=== PATIENT | male | born 1990 | race African-American/Black ===

== ENCOUNTER 2019-11-01 13:41 | Emergency (ER) | payer SELFPAY ==
[~2019-11-01 13:41] MED LIST: EPINEPHrine 1 MG/10 ML Abboject SYRINGE ONE; Sodium Bicarb 50 MEQ/50 ML Abboject 8.4% SYRINGE ONE
[2019-11-01 14:07] LABS: Mean Corpuscular HGB CONC 32.3 g/dL (32.0-36.0); Mean Corpuscular Hemoglobin 29.2 pg (27.0-31.0); Mean Corpuscular Volume 90.3 fL (78.0-98.0); Mean Platelet Volume 8.7 fL (7.4-10.4); Platelet Count 249 thou/uL (130-400); RBC Distribution Width 13.9 % (11.5-14.5); Red Blood Cell (RBC) Count 5.15 mill/uL (4.70-6.10); White Blood Cell (WBC) Count 13.2 thou/uL (4.8-10.8)
[2019-11-01 14:18] LABS: ALT (SGPT) 12 U/L (8-55); AST (SGOT) 17 U/L (5-34); Alkaline Phosphatase 57 U/L (40-110); Anion Gap 28 mmol/L (10-20); BUN (Urea Nitrogen) 12 mg/dL (8.4-25.7); Bilirubin, Total 0.2 mg/dL (0.2-1.2); Calc. Creatinine Clearance 0 mL/min (70-130); Calcium 9.1 mg/dL (7.8-10.44); Carbon Dioxide 12 mmol/L (22-29); Chloride 106 mmol/L (98-107); Estimated GFR-MDRD 49; Glucose 191 mg/dL (70-105); Potassium 3.6 mmol/L (3.5-5.1); Sodium 142 mmol/L (136-145)
[2019-11-01 14:31] LABS: Band 3 % (5-11); Lymphocytes 46 % (21-51); MDiff Complete? YES; Monocytes 6 % (0-10); Neutrophil 23 % (42-75); Platelet Morphology Comment Appears Adequate; Polychromasia SLIGHT = 2-3 cells (100X) (0-2/hpf); Reactive Lymphocytes 22 % (0-10)
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
== END 2019-11-01 13:59 | disposition expired ==
LOC: ERS 13:41 → EDBD 13:41 → ERS 13:59
DX: J96.90 Respiratory failure, unspecified, unspecified whether with hypoxia or hypercapnia (principal); T59.91XA Toxic effect of unspecified gases, fumes and vapors, accidental (unintentional), initial encounter; T24.211A Burn of second degree of right thigh, initial encounter; T25.221A Burn of second degree of right foot, initial encounter; T24.212A Burn of second degree of left thigh, initial encounter; T22.211A Burn of second degree of right forearm, initial encounter; T23.201A Burn of second degree of right hand, unspecified site, initial encounter; T21.20XA Burn of second degree of trunk, unspecified site, initial encounter; T31.55 Burns involving 50-59% of body surface with 50-59% third degree burns; X02.1XXA Exposure to smoke in controlled fire in building or structure, initial encounter; Y92.009 Unspecified place in unspecified non-institutional (private) residence as the place of occurrence of the external cause
CPT/HCPCS: 80053; 85025; 86850; 86900; 86901; 96361; 96374; 96375; G0390; J0171